=== PATIENT | female | born 1950 | race Caucasian/White ===

== ENCOUNTER 2019-03-09 14:49 | Observation (INO) | payer MEDICARE ==
[2019-03-09] MEDS ORDERED: FENTANYL PF 100MCG/2ML VIAL IVP ONE ×2 (15:00→17:53)
[2019-03-09] MEDS ORDERED: 0.9 % SODIUM CHLORIDE 1,000 ML BAG IV ONE (15:00)
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
[2019-03-09 15:38] LABS: ABSOLUTE NEUTROPHIL COUNT 11.13; BASO % 0.2 % (0-6); EOS % 0.7 % (0-6); HEMATOCRIT 41.3 % (35.0-47.0); HEMOGLOBIN 13.1 gm/dl (11.6-16.0); LYMPH % 16.1 % (16-45); MEAN CELL VOLUME 92.2 fl (81-97); MEAN CORPUSCULAR HEMOGLOBIN 29.2 pg (27-33); MEAN CORPUSCULAR HGB CONC 31.7 g/dl (32-36); MEAN PLATELET VOLUME 9.8 fl (7.4-10.4); PLATELET COUNT 299 K/uL (130-400); RED BLOOD COUNT 4.48 M/uL (3.80-5.40); RED CELL DISTRIBUTION WIDTH 14.6 % (11.5-14.5); WHITE BLOOD COUNT W/O DIFF 14.5 K/uL (4.2-12.2)
[2019-03-09 15:53] LABS: BLOOD UREA NITROGEN 10 mg/dL (8-23); CREATININE 0.9 mg/dL (0.5-0.9); EST GLOMERULAR FILTRATION RATE > 60 mL/min; INR 1.1; PARTIAL THROMBOPLASTIN TIME 26.9 SECONDS (24.5-39.1); PROTHROMBIN TIME (PATIENT) 11.1 SECONDS (9.5-12.1); TOTAL PROTEIN 7.4 g/dL (6.6-8.7)
[2019-03-09 15:55] LABS: GLUCOSE,RANDOM 117 mg/dL (74-109)
[2019-03-09 15:58] LABS: ALB/GLOB RATIO 1.6 (1.1-1.8); ALBUMIN 4.5 g/dL (4.0-5.0); ALKALINE PHOSPHATASE 111 U/L (35-104); ALT/SGPT 15 U/L (<33); AST/SGOT 19 U/L (10.0-35.0)
[2019-03-09] MEDS ORDERED: ACETAMINOPHEN 325 MG TAB PO PRN (18:32)
[2019-03-09] MEDS ORDERED: FENTANYL PF 100MCG/2ML VIAL IVP PRN (18:32)
[2019-03-09] MEDS ORDERED: FLU VAC QS 2019-20 (INPT, 6MO+) 60MCG/0.5ML IM ONE (19:01)
[2019-03-09] MEDS ORDERED: HYDROCODONE/APAP 5/325MG TABLET PO PRN (23:22)
[2019-03-10] MEDS: HYDROCODONE/APAP 5/325MG TABLET PO PRN ×3 (05:25→21:50)
[2019-03-10] MEDS: PANTOPRAZOLE SODIUM 40 MG TABLET PO SCH ×2 (05:25→06:06)
--- NOTE | 2019-03-10 07:27 | CT SCAN REPORT ---
EXAM: CT OF THE ABDOMEN AND PELVIS WITH CONTRAST HISTORY: TRAUMA. TECHNIQUE: Standard CT imaging of the abdomen and pelvis was obtained following the intravenous administration of contrast. Comparison: None. FINDINGS: The lung bases are clear. Diffuse hypodensity of the liver suggesting fatty infiltration. No acute injury is identified. The gallbladder is absent. No common bile duct dilatation. The pancreas is unremarkable. Tiny calcific granulomas in the spleen which is normal in size without evidence for injury. There is a 1.4 cm indeterminate right adrenal nodule. The kidneys are unremarkable. Several small cysts in the right kidney. The stomach and small bowel are unremarkable. There is colonic diverticulosis. The colon appears normal. The appendix is not seen. No pelvic adenopathy or free fluid. The bladder is unremarkable. No retroperitoneal adenopathy. No abdominal aortic aneurysm. No fracture is identified. There is a large area of edema in the subcutaneous tissues posteriorly on the right compatible with hematoma/contusion in the setting of trauma. Advanced degenerative disk disease of the lumbosacral junction. IMPRESSION: 1. SUBCUTANEOUS HEMATOMA AND CONTUSION POSTERIOR OVER THE RIGHT PELVIS. NO UNDERLYING PELVIC FRACTURE. NO SOLID ORGAN INJURY IS IDENTIFIED IN THE ABDOMEN OR PELVIS. 2. 1.4 CM INDETERMINATE RIGHT ADRENAL NODULE. ADRENAL PROTOCOL CT IS RECOMMENDED IN ONE YEAR FOR FURTHER EVALUATION. JOB NUMBER: [id number] [facility]
--- NOTE | 2019-03-10 07:30 | RADIOLOGY REPORT ---
EXAM: RIGHT KNEE, FOUR VIEWS HISTORY: PAIN AFTER FALL. TECHNIQUE: Four views of the right knee were obtained. Comparison: None. Encounter: Initial. FINDINGS: There is diffuse soft tissue swelling. No acute bone or joint abnormality is identified. No definite suprapatellar joint effusion. There is marked prepatellar soft tissue swelling. IMPRESSION: MARKED PREPATELLAR SOFT TISSUE SWELLING AND DIFFUSE EDEMA. NO EVIDENCE FOR FRACTURE OR DISLOCATION. [facility]BER: [id number] [facility]
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
--- NOTE | 2019-03-10 07:54 | CT SCAN REPORT ---
EXAM: CT OF THE CERVICAL SPINE WITHOUT CONTRAST HISTORY: FALL. TECHNIQUE: Standard CT imaging of the cervical spine without intravenous contrast was obtained. Comparison: None. FINDINGS: There is 3 mm of anterolisthesis of C4 on C5. This is likely secondary to facet arthropathy. No acute fracture is identified. Otherwise alignment and vertebral body heights are maintained. Moderate degenerative disk disease at C5-C6 and C6-C7. Uncovertebral and facet hypertrophy cause multilevel neural foraminal stenosis. No significant osseous narrowing of the spinal canal. The prevertebral soft tissues are within normal limits. IMPRESSION: 1. NO EVIDENCE FOR ACUTE FRACTURE IN THE CERVICAL SPINE. 2. DEGENERATIVE CHANGES, ABOVE. J[facility]BER: [id number] [facility]
--- NOTE | 2019-03-10 09:32 | History & Physical ---
History of Present Illness - Date of Service Date of Service for History & Physical: 03/10/19 - History of Present Illness Admitting Diagnosis: gluteal contusion, knee contusion History of Present Illness: 68 yo female presented to [facility] ER for fall off the hitch of a tractor. Pt landed on knee and buttocks and c/o pain and bruising. Pt on Xeralto for PEs. 98.7F, HR 71, BP 102/74, RR 16, 98% RA, pain 2-12/11 WBC 14.5, Hgb 13.1, Hct 41.3, Plt 299 INT 1.1, Pt 11.1, aPTT 26.9 Na 137, K 3.6, Cl 100, anion gap 12, BUN 10, Cr 0.9, GFR>60, glcuose 117, LFTs w nl except alk phos [address] head neg CT neck neg for acute, DDD noted CT Abd/pelvis subcut hematoma/contusion right pelvis no solid organ injury, adrenal mass noted (1 yr follow up recommended by PCP) Knee XR swelling/edema but no fracture/dislocation 03/10/19 Travel Screening - Travel/Exposure Within Last 30 Days Have you traveled within the last 30 days?: No - Travel/Exposure Within Last Year Have you traveled outside the [place] in the last year?: No - Additonal Travel Details Have you been exposed to anyone with a communicable illness?: No - Travel Symptoms Symptom Screening: None Review of Systems Constitutional: Denies: Chills, Fever, Malaise, Weakness Eyes: Denies: Eye discharge, Eye pain, Vision change ENT: Denies: Congestion, Throat pain Respiratory: Denies: Cough, Dyspnea Cardiovascular: Denies: Chest pain, Palpitations, Syncope Endocrine: Denies: Fatigue, Polydipsia, Polyuria Gastrointestinal: Denies: Abdominal pain, Diarrhea, Nausea, Vomiting Genitourinary: Denies: Dysuria, Frequency, Hematuria, Urgency Musculoskeletal: Reports: As per HPI, Arthralgia, Back pain. Denies: Neck pain Skin: Reports: Bruising. Denies: Change in color, Rash Neurological: Denies: Headache, Numbness, Tingling, Weakness Psychiatric: Denies: Anxiety Hematological/Lymphatic: Denies: Easy bleeding, Easy bruising Past Medical History - SOCIAL HISTORY Smoking Status: Current every day smoker Alcohol Use: Rare Drug Use: None - RESPIRATORY Hx Respiratory Disorders: No - CARDIOVASCULAR Hx Cardio Disorders: Yes Hx Cardiac Cath: Yes (2 stents 2018) Hx Heart Attack: Yes Hx Hypertension: Yes Hx Irregular Heartbeat: Yes (A-Fib) - NEURO Hx Neuro Disorders: No - GI Hx GI Disorders: Yes Hx Abdominal Pain: Yes Hx Reflux: Yes Hx Ulcer: Yes (peptic and duodenal) - Hx Genitourinary Disorders: No - ENDOCRINE Hx Endocrine Disorders: Yes Hx Diabetes: No Hx Thyroid Disease: Yes - MUSCULOSKELETAL Hx Musculoskeletal Disorders: Yes Hx Arthritis: Yes - PSYCH Hx Psych Problems: Yes Hx Depression: Yes - HEMATOLOGY/ONCOLOGY Hx Hematology/Oncology Disorders: No Family Medical History Any Significant Family History?: Yes Hx Alcohol Use: Brother/Sister Hx Cancer: Mother Hx Dementia: Grandparents Hx Depression: Father H&P Meds/Allergies - Allergies Allergies: Allergies Allergy/AdvReac Type Severity Reaction Status Date / Time No Known Drug Allergies Allergy Verified 03/09/19 15:07 - Home Medications Home Medications Medication Instructions Recorded Confirmed Last Taken Clopidogrel Bisulfate [Plavix] 75 mg PO DAILY 03/09/19 03/09/19 1 Day Ago ~03/08/19 Escitalopram Oxalate [Lexapro] 20 mg PO QHS 03/09/19 03/09/19 1 Day Ago ~03/08/19 Omeprazole 40 mg PO QHS 03/09/19 03/10/19 1 Day Ago ~03/08/19 Rivaroxaban [Xarelto] 20 mg PO QHS 03/09/19 03/10/19 1 Day Ago ~03/08/19 Amlodipine Besylate 2.5 mg PO QHS 03/10/19 03/10/19 Unknown Levothyroxine Sodium 75 mcg PO DAILY 03/10/19 03/10/19 Unknown Rosuvastatin Calcium 40 mg PO QHS 03/10/19 03/10/19 Unknown - Active Medications Active Medications: Current Medications Acetaminophen (Tylenol 325mg) 650 mg PO Q6H PRN PRN Reason: PAIN - MILD(1-4)/FEVER Hydrocodone Bitart/Acetaminophen (Tolstoy 5mg/325mg) 1 each PO Q6H PRN PRN Reason: PAIN - MILD (1-4) Hydrocodone Bitart/Acetaminophen (Tolstoy 5mg/325mg) 2 each PO Q6H PRN PRN Reason: PAIN - MOD TO SEVERE (5-10) Last Admin: 03/10/19 05:25 Dose: 2 each Documented by: Amlodipine Besylate (Norvasc) 10 mg PO QHS [facility] Escitalopram Oxalate (Lexapro) 20 mg PO QHS [facility] Levothyroxine Sodium (Synthroid) 75 mcg PO DAILYTHY [facility]UDE Pantoprazole Sodium (Protonix) 40 mg PO QHS [facility] Physical Exam - Vital Signs Vital Signs: Vital Signs - Last 24 Hrs Temp Pulse Pulse Pulse Resp BP BP 03/09/19 21:00 18 03/09/19 20:30 98.1 F 52 L 18 93/53 03/09/19 18:49 16 03/09/19 18:43 98.5 F 59 L 16 103/92 03/09/19 18:18 98.1 F 53 L 18 135/84 03/09/19 17:00 55 L 16 133/93 03/09/19 14:54 98.7 F 71 16 102/74 Pulse Ox 03/09/19 21:00 03/09/19 20:30 96 03/09/19 18:49 03/09/19 18:43 98 03/09/19 18:18 96 03/09/19 17:00 97 03/09/19 14:54 98 - General General Appearance: Alert, Oriented x3, Cooperative, No acute distress Limitations: No limitations - Head Head exam: Atraumatic, Normocephalic, Normal inspection Head exam detail: negative: Abrasion, Contusion, Hematoma, Laceration - Eye Eye exam: Normal appearance, PERRL. negative: Conjunctival injection, Scleral icterus - ENT ENT exam: Normal exam, Mucous membranes moist Ear exam: Normal external inspection Nasal Exam: Normal inspection Mouth exam: Normal external inspection Teeth exam: Normal inspection Throat exam: Normal inspection - Neck Neck exam: Normal inspection, Full ROM. negative: Tenderness - Respiratory Respiratory exam: Normal lung sounds bilaterally. negative: Respiratory distress - Cardiovascular Cardiovascular Exam: Regular rate, Normal rhythm, Normal heart sounds Peripheral Pulses: 3+: Radial (R), Radial (L), Dorsalis Pedis (R), Dorsalis Pedis (L) - GI/Abdominal GI/Abdominal exam: Soft. negative: Distended, Guarding, Tenderness - Rectal Rectal exam: Deferred - exam: Deferred - Extremities Extremities exam: Joint swelling, Tenderness. negative: Normal inspection, Calf tenderness, Full ROM, Pedal edema - Back Back exam: Reports: Normal inspection, Full ROM, Tenderness (low right gluteal). Denies: CVA tenderness (R), CVA tenderness (L), Muscle spasm, Rash noted - Neurological Neurological exam: Abnormal gait, Alert, Oriented X3, Reflexes normal - Psychiatric Psychiatric exam: Normal affect, Normal mood - Skin Skin exam: Abrasion (right knee, sacral cleft), Dry, Intact, Normal color, Warm, Other (bruising right great toe, right knee, right buttock) Results - Labs Result Diagrams: 03/09/19 15:05 03/09/19 15:05 Labs Last 24 Hours: Laboratory Results - last 24 hr 03/09/19 03/09/19 03/09/19 15:05 15:05 15:05 WBC 14.5 H RBC 4.48 Hgb 13.1 Hct 41.3 MCV 92.2 MCH 29.2 MCHC 31.7 L RDW 14.6 H Plt Count 299 MPV 9.8 Gran % 77.0 Lymphocytes % 16.1 Monocytes % 6.0 Eosinophils % 0.7 Basophils % 0.2 Absolute Neutrophils 11.13 PT 11.1 INR 1.1 APTT 26.9 Sodium 137 Potassium 3.6 Chloride 100 Carbon Dioxide 25.0 Anion Gap 12.0 BUN 10 Creatinine 0.9 Estimated GFR > 60 Random Glucose 117 H Calcium 9.4 Total Bilirubin 0.60 AST 19 ALT 15 Alkaline Phosphatase 111 H Total Protein 7.4 Albumin 4.5 Globulin 2.9 Albumin/Globulin Ratio 1.6 Ethyl Alcohol 0.000 VTE H&P Assessment - Risk for VTE Risk for VTE: Yes Risk Level: Moderate Risk Assessment Date: 03/10/19 Risk Assessment Time: 09:52 VTE Orders Placed or Will Be Placed: No VTE Reason for No Prophylaxis: Contraindicated (pt on plavix and Xeralto) Plan - Detailed Diagnosis and Plan (1) Hematoma Current Visit: Yes Status: Acute Base Code: T14.8XXA - OTHER INJURY OF UNSPE CIFIED BODY REGION, INITIAL ENCOUNTER Comment: 03/10/19 -hematoma right buttock, CT shows soft tissue swelling but no solid organ damage -buttock TTP but soft -Hgb 13.1 -Hct 41.3 (2) Impaired mobility Current Visit: Yes Status: Acute Base Code: Z74.09 - OTHER REDUCED MOBILITY Comment: 03/10/19 -right knee immbolized, pt using walker -PT eval ordered for today -pt lives on second story of apt building but will be albe to stay with her son for a few days (3) Contusion, knee Current Visit: Yes Status: Acute Qualifiers: Encounter type: initial encounter Laterality: right Qualified Code(s): S80.01XA - Contusion of right knee, initial encounter Base Code: S80.00XA - CONTUSION OF UNSPECIFIED KNEE, INITIAL ENCOUNTER Comment: 03/10/19 -abrasion to right knee, dressing changed by nursing staff -appears clean and no s/s infection (4) Full code status Current Visit: Yes Status: Acute Base Code: Z78.9 - OTHER SPECIFIED HEALTH STATUS Comment: 03/10/19 -full code (5) DVT prophylaxis Current Visit: Yes Status: Acute Base Code: Z29.9 - ENCOUNTER FOR PROPHYLACTIC MEASURES, UNSPECIFIED Comment: 03/10/19 -pt on Xeralto and plavix for PEs and ME in the past -no additional anticoagulation
--- NOTE | 2019-03-10 11:52 | Rehab Evaluation ---
Patient Information - Patient Information Diagnosis: Gluteal and Knee Contusion Ordered Treatment: PT Evaluate and Treat Status: Initial Evaluation Surgery: No History: Detail (Patient was admitted to the inpatient floor from the ER on 03/09/19.) Past Medical/Surgical Hx: PAST MEDICAL/SURGICAL HISTORY Past Surgical History PTCA with 2 stents vaginal hyster neck heel spurs ear X5 PMH - Respiratory Hx Respiratory Disorders No PMH - Cardiovascular Hx Cardiovascular Disorders Yes Hx Cardiac Catheterization Yes: 2 stents 2018 Hx Heart Attack Yes Hx Hypertension Yes Hx Irregular Heartbeat Yes: A-Fib PMH - Neuro Hx Neurological Disorders No PMH - GI Hx Gastrointestinal Disorders Yes Hx Abdominal Pain Yes Hx Gastroesophageal Reflux Yes Hx Ulcer Yes: peptic and duodenal PMH - Hx Genitourinary Disorders No Patient No PMH - Endocrine Hx Endocrine Disorders Yes Hx Diabetes No Hx Thyroid Disease Yes PMH - Musculoskeletal Hx Musculoskeletal Disorders Yes Hx Arthritis Yes PMH - Psych Hx Psychiatric Problems Yes Hx Depression Yes PMH - Hematology/Oncology Hx Hematology/Oncology No Disorders Premorbid Status: Detail (Prior to the patient's accident, patient stated that she was independent in all ADLs and household tasks. She stated that she used no AD for ambulation.) Social History: Detail (Patient lives alone in an apartment on the 2nd floor. There are 15 stairs up to the apartment with 1 railing available. She stated that if she was unable to get up to her apartment she would be able to stay with her son who has 3 stairs to get into his house. In the bathroom there is a tub/shower combination and a regular height toilet. There are no grab bars available to her. She stated that she has a single point cane available to her at her home if she needs to use it.) Precautions: Pilger, Fall - Time With Patient Total Time Spent With Patient (Min): 30 Treatment Procedures: Detail (Initial evaluation; low complexity Patient was left in bed with her call light and bedside table within reach. The nursing staff was notified of her position.) Subjective Information - Subjective Information Per Patient (Patient stated that she had 4-5/10 pain in her R knee, buttocks, and big toe.) Objective Data - Pain Pain Present: Yes Pain Scale Used: Numeric (1 - 10) (4-5/10 on the R LE) - Mental Status Patient Orientation: Oriented x3 (Patient is able to identify herself, age, birthdate, location, month, and current president.) - Visual Perception Appears within normal limits for therapeutic activities - ROM Not within normal limits (UE AROM is within normal limits for functional activities. L LE AROM is within normal limits for functional activities. R hip and knee AROM limited by knee immobilizer on the R LE. R ankle ROM is within normal limits.) - Strength/Tone Not within normal limits (UE strength grossly 5/5. Bilateral hip flexion 3+/5. Bilateral ankle dorsiflexion 5/5. Knee strength testing limited due to pain and bruising of both knees and the R knee being in an immobilizer.) - Coordination Appears within normal limits for therapeutic activities - Bed Mobility Independent (Patient is able to independently in bed from side to side, and up and down.) - Transfers Independent (Patient was able to independently able to transfer from supine to sit, sit to stand, stand to sit, and stand to sit.) - Balance Balance Sitting: Good Balance Standing: Good - Sensation Intact - Gait Detail (Patient ambulated 120 feet over smooth surfaces with a front-wheeled walker independently. She ambulated with decreased knee ROM on the R due to being in a knee immobilizer and with decreased toe contact on the R due to pain on the R big toe. Step length decreased on the R and decreased gait speed. Patient was educated on stair technique. She was able to ascend and descend 7 stairs with good technique and she stated that she felt better about being able to negotiate the stairs in her apartment. Patient was able to ambulate 50 feet with no AD independently on smooth surfaces. She stated that she felt safe to ambulate without an AD.) Therapy Assessment - Therapy Assessment Detail (Patient presents with pain, gait abnormalities due to R knee immobilizer and R knee and great toe pain. Patient stated that after therapy she felt more confident about being able to get up the stairs to her apartment and being able to walk without an AD. Due to independence with mobility the patient does not require ongoing PT services at this time. If pain persists in R LE the patient may benefit from ongoing outpt.PT.) Problem List - Problem List Physical Therapy Problem List: Detail (1. Pain in LEs 2. Decreased LE strength 3. Decreased R LE ROM) Goals - Goals Physical Therapy Goals: All inpatient therapy goals have been met at this time. Prognosis - Prognosis Good Plan - Plan Physical Therapy Plan: Patient has met all inpatient therapy goals at this time. Ongoing PT is not recommended at this time.
[2019-03-10] MEDS: LEVOTHYROXINE SODIUM 75 MCG TABLET PO SCH (17:00)
[2019-03-10] MEDS ORDERED: ESCITALOPRAM 10 MG TABLET PO SCH (22:00)
[2019-03-10] MEDS ORDERED: AMLODIPINE BESYLATE 5MG TAB PO SCH (22:00)
[2019-03-10] MEDS ORDERED: PANTOPRAZOLE SODIUM 40 MG TABLET PO SCH (22:00)
[2019-03-11] MEDS: HYDROCODONE/APAP 5/325MG TABLET PO PRN ×2 (03:47→10:22)
--- NOTE | 2019-03-11 04:59 | RADIOLOGY REPORT ---
EXAM: RIGHT GREAT TOE HISTORY: DISTAL PAIN POST INJURY. TECHNIQUE: Three views of the right great toe were obtained. Comparison: None. Encounter: Initial. FINDINGS: There is normal bone mineralization. On the AP view there is linear lucency projecting at the level of the medial aspect of the first distal phalanx tuft. It is difficult to determine whether this is a nondisplaced fracture or the result of overlying toenail abnormality. Additionally, there is a minimally displaced intraarticular fracture of the dorsal aspect of the base of the first distal phalanx. No other fracture is seen nor is there dislocation, There is soft tissue swelling of the great toe. There are mild osteoarthritic changes of the first MTP joint. IMPRESSION: 1. MINIMALLY DISPLACED INTRAARTICULAR FRACTURE OF THE DORSAL ASPECT OF THE BASE OF THE FIRST DISTAL PHALANX. 2. ON THE AP VIEW THERE IS SUBTLE LINEAR LUCENCY AT THE LEVEL OF THE MEDIAL ASPECT OF THE FIRST DISTAL PHALANX TUFT. IT IS INDETERMINATE WHETHER THIS IS A NONDISPLACED FRACTURE OR THE RESULT OF OVERLYING TOENAIL ABNORMALITY. 3. SOFT TISSUE SWELLING. JOB NUMBER: [id number] [facility]
[2019-03-11] MEDS: LEVOTHYROXINE SODIUM 75 MCG TABLET PO SCH (06:09)
--- NOTE | 2019-03-11 09:51 | Discharge Summary ---
Providers Discharge Summary Date: 03/11/19 Date of admission: 03/09/19 17:56 Attending physician: MODESTO SIMMONS Primary care physician: LESIA TORRES Consults: Consult Orders 03/10/19 15:46 Consult NOW Consulting Provider: Srinivasa Graham Physician Instructions: Reason For Exam: right great toe fx Physical Exam - Vital Signs Vital Signs: Vital Signs - Last 24 Hrs Temp Pulse Resp BP Pulse Ox 03/11/19 08:00 97.6 F 88 12 124/65 97 03/11/19 05:00 97.8 F 45 L 18 111/63 100 03/10/19 21:00 16 03/10/19 20:00 97.7 F 46 L 18 110/63 95 03/10/19 10:00 97.9 F 86 18 105/62 97 - General General Appearance: Alert, Oriented x3, Cooperative, No acute distress Limitations: No limitations - Head Head exam: Atraumatic, Normocephalic, Normal inspection Head exam detail: negative: Abrasion, Contusion, Hematoma, Laceration - Eye Eye exam: Normal appearance, PERRL. negative: Conjunctival injection, Scleral icterus - ENT ENT exam: Normal exam, Mucous membranes moist Ear exam: Normal external inspection Nasal Exam: Normal inspection Mouth exam: Normal external inspection Teeth exam: Normal inspection Throat exam: Normal inspection - Neck Neck exam: Normal inspection, Full ROM. negative: Tenderness - Respiratory Respiratory exam: Normal lung sounds bilaterally. negative: Respiratory distres s - Cardiovascular Cardiovascular Exam: Regular rate, Normal rhythm, Normal heart sounds Peripheral Pulses: 3+: Radial (R), Radial (L), Dorsalis Pedis (R), Dorsalis Pedis (L) - GI/Abdominal GI/Abdominal exam: Soft - Rectal Rectal exam: Deferred - exam: Deferred - Extremities Extremities exam: Joint swelling (right knee), Tenderness. negative: Normal inspection, Calf tenderness, Full ROM, Pedal edema - Back Back exam: Reports: Normal inspection, Full ROM, Tenderness (low right gluteal). Denies: CVA tenderness (R), CVA tenderness (L), Muscle spasm, Rash noted - Neurological Neurological exam: Abnormal gait, Alert, Oriented X3, Reflexes normal - Psychiatric Psychiatric exam: Normal affect, Normal mood - Skin Skin exam: Abrasion (right knee, sacral cleft), Dry, Intact, Normal color, Warm, Other (bruising right great toe, right knee, right buttock) Hospitalization - Hospitalization Admission Diagnosis: gluteal contusion, knee contusion - Problem List/Discharge Diagnosis (1) Contusion, knee Current Visit: Yes Status: Acute Discharge Diagnosis: Encounter type: initial encounter Laterality: right Qualified Code(s): S80.01XA - Contusion of right knee, initial encounter Base Code: S80.00XA - CONTUSION OF UNSPECIFIED KNEE, INITIAL ENCOUNTER Comment: 03/11/19 -abrasion to right knee -appears clean and no s/s infection -Adaptic, 4x4 and tape while wearing knee immobilizer -Pt can wear knee immobilizer as needed for comfort and to provide compression -Hanover 5/325mg PRN for Mod-Severe pain (2) Hematoma Current Visit: Yes Status: Acute Base Code: T14.8XXA - OTHER INJURY OF UNSPECIFIED BODY REGION, INITIAL ENCOUNTER Comment: 03/11/19 -hematoma right buttock, CT shows soft tissue swelling but no solid organ damage -buttock TTP but soft -Hgb 13.1 -Hct 41.3 (3) Fracture of distal phalanx of toe of right foot Current Visit: Yes Status: Acute Base Code: S92.911A - UNSP FRACTURE OF RIGHT TOE(S), INIT FOR CLOS FX Comment: 03/11/19 -Right foot xray: Minimally displaced intraarticular fx of dorsal aspect of base of 1st distal phalanx. 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 -Pt refuses to wear ortho boot -PT/OT evaluated and worked with pt, no needs upon discharge (4) DVT prophylaxis Current Visit: Yes Status: Acute Base Code: Z29.9 - ENCOUNTER FOR PROPHYLACTIC MEASURES, UNSPECIFIED Comment: 03/11/19 -pt on Xeralto and plavix for PEs and OR in the past -no additional anticoagulation needed (5) Full code status Current Visit: Yes Status: Acute Base Code: Z78.9 - OTHER SPECIFIED HEALTH STATUS Comment: 03/11/19 -full code - Hospitalization Course Disposition: Home, Self-Care Hospital Course: 68 yo female presented to [facility] ER for fall off the hitch of a tractor. Pt landed on knee and buttocks and c/o pain and bruising. Pt on Xeralto for PEs. 98.7F, HR 71, BP 102/74, RR 16, 98% RA, pain 2-10 WBC 14.5, Hgb 13.1, Hct 41.3, Plt 299 INT 1.1, Pt 11.1, aPTT 26.9 Na 137, K 3.6, Cl 100, anion gap 12, BUN 10, Cr 0.9, GFR>60, glcuose 117, LFTs wnl except alk phos [address] head neg CT neck neg for acute, DDD noted CT Abd/pelvis subcut hematoma/contusion right pelvis no solid organ injury, adrenal mass noted (1 yr follow up recommended by PCP) Knee XR swelling/edema but no fracture/dislocation 03/11/19 Pt evaluated sitting up in bed. Knee immobilizer on. Reported pain 09/11 currently, had Hanover around 3:30am. Denies N/V. Waiting for Dr. Graham (podiatry) and anticipates d/c home. Procedures: Imaging and X-Rays 03/09/19 15:00 ABDOMEN/PELVIS W CONTRAST [CT] Stat CERVICAL SPINE WO CONTRAST [CT] Stat HEAD WO CONTRAST [CT] Stat KNEE, RIGHT 4 VIEWS [RAD] Stat 03/10/19 09:47 TOES, RIGHT [RAD] Stat Abnormal Labs: Abnormal Lab Results 03/09/19 03/09/19 Range/Units 15:05 15:05 WBC 14.5 H (4.2-12.2) K/uL MCHC 31.7 L (32-36) g/dl RDW 14.6 H (11.5-14.5) % Random Glucose 117 H (74-109) mg/dL Alkaline Phosphatase 111 H (35-104) U/L Condition at Discharge: (2) Stable Discharge Medications - Discharge Medications Prescriptions: Hydrocodone/APAP 5/325Mg [Hanover 5Mg/325Mg] 1 each PO Q6H PRN #20 tab PRN Reason: Pain - Mild To Moderate (1-7) Home Medications: Ambulatory Orders Clopidogrel Bisulfate [Plavix] 75 mg PO DAILY 03/09/19 [Last Taken 1 Day Ago ~03/08/19] Escitalopram Oxalate [Lexapro] 20 mg PO QHS 03/09/19 [Last Taken 1 Day Ago ~03/08/19] Omeprazole 40 mg PO QHS 03/09/19 [Last Taken 1 Day Ago ~03/08/19] Rivaroxaban [Xarelto] 20 mg PO QHS 03/09/19 [Last Taken 1 Day Ago ~03/08/19] Amlodipine Besylate 2.5 mg PO QHS 03/10/19 [Last Taken Unknown] Levothyroxine Sodium 75 mcg PO DAILY 03/10/19 [Last Taken Unknown] Rosuvastatin Calcium 40 mg PO QHS 03/10/19 [Last Taken Unknown] Acetaminophen [Tylenol 325Mg] 650 mg PO Q6H PRN tablet 03/11/19 [Last Taken Unknown] Hydrocodone/APAP 5/325Mg [Hanover 5Mg/325Mg] 1 each PO Q6H PRN #20 tab 03/11/19 [Last Taken Unknown] Discharge Plan - Discharge Instructions Activity at Discharge: Resume Usual Activities As Tolerated Diet at Discharge: Advance to Usual Diet Additional Instructions: Can take 1 Tylenol 325mg OR 500mg tablet with 1 Hanover tablet Do not exceed 3,000mg of Tylenol (Acetaminophen) in a 24 hour period Can wear knee immobilizer as needed for comfort and to keep compression on the knee Quality Measures - Quality Measures Quality Measures: Advance Directives, Documentation of Current Medications in Medical Record, Elder Maltreatment Screen and Follow-Up Plan, Screening for High Blood Pressure and F/U Documented - Current Medications Quality Measure: Measure #130: Documentation of Current Medications Documentation of Current Medications: <Current Medications Documented/Reviewed> [[id number]] - Blood Pressure Screening Quality Measure: Screening for High Blood Pressure and Follow-Up Documented Does Patient Have Any of the Following: Active Dx of HTN Blood Pressure Classification: Normal BP Reading Systolic Measurement: 102 Diastolic Measurement: 74 Screening for High Blood Pressure: Patient Exclusion, Hx of HTN [[id number]] - Advance Directives Quality Measure: Measure #47: Care Plan Advance Directives Established: No Advance Directives Information Provided To Patient: Declined Advance Directives on File: No Living Will: No Power of Dress Fitter: No Advance Care Planning: <Care Plan/Decision Maker Documented; Discussed & Documented> [1120F] - Elder Abuse Suspicion Index Screening: Elder Abuse Suspicion Index Screening Rely on people for bathing, dressing, shopping, banking, etc: No Prevented from getting food, clothes, medication, etc: No Made to feel shamed or threatened by someone: No Forced to sign papers or use money against will: No Feel afraid, touched in ways not wanted or hurt physically: No Poor eye contact, withdrawn, malnourished, cuts or bruises: No Screening Result: Negative result EASI Reference Information: Mj RIOS, Jesus Fisher, Glory Mcfarland, Tacos Estrada.Development and validation of a tool to assist physicians identification of elder abuse: The Elder Abuse Suspicion Index (EASI ). Journal of Elder Abuse and Neglect, 2008; 20 (3): 276-300. - Elder Maltreatment Screen Quality Measures: Elder Maltreatment Screen and Follow-Up Plan Elder Maltreatment Screen: <Negative, No Follow-Up Plan Required> [[id number]]
== END 2019-03-11 12:32 | disposition home or self-care (01) ==
LOC: ER 14:49 → MEDSURG 17:56
PROVIDERS: ADMIT Internal Medicine; ATTEND Internal Medicine
DX: S80.01XA Contusion of right knee, initial encounter (principal); S70.01XA Contusion of right hip, initial encounter; S30.0XXA Contusion of lower back and pelvis, initial encounter; V84.6XXA Passenger of special agricultural vehicle injured in nontraffic accident, initial encounter; Z74.09 Other reduced mobility; S92.911A Unspecified fracture of right toe(s), initial encounter for closed fracture; I48.91 Unspecified atrial fibrillation; Z79.01 Long term (current) use of anticoagulants; I10 Essential (primary) hypertension; K21.9 Gastro-esophageal reflux disease without esophagitis; E03.9 Hypothyroidism, unspecified; I25.2 Old myocardial infarction; M19.90 Unspecified osteoarthritis, unspecified site; F17.210 Nicotine dependence, cigarettes, uncomplicated; Z95.5 Presence of coronary angioplasty implant and graft
CPT/HCPCS: 85025; 85730; 85610; 80053; 73564; 73660; 72125; 70450; 74177; G0378 ×3; G0480; Q9967; J3010; 80320; 96374; 96376; 99217; 99220; 99285; J7030